=== PATIENT | male | born 1945 | race Caucasian/White ===

== ENCOUNTER 2016-05-25 08:08 | Emergency (ER) | payer MEDICARE, OTHER ==
[2016-05-25 09:07] LABS: ABSOLUTE NEUTROPHIL COUNT 6.2 K/mm3 (1.8-7.7); BASO # 0.1 K/mm3 (0.0-0.2); BASO % 0.8 % (0.2-1.0); EOS # 0.4 (0.0-0.5); EOS % 4.3 % (0.9-2.9); HEMATOCRIT 35.8 % (32.0-52.0); HEMOGLOBIN 11.5 gm/l (14.0-18.0); IMM NEUT% 0.4 % (0-1); LYMPH % 12.2 % (15-45); MEAN CELL VOLUME 87.7 fl (80.0-94.0); MEAN CORPUSCULAR HEMOGLOBIN 28.2 pg (27.0-31.0); MEAN CORPUSCULAR HGB CONC 32.1 g/dl (33.0-37.0); MEAN PLATELET VOLUME 8.1 fl (7.4-10.4); MONO # 0.9 (0.0-0.8); MONO % 10.1 % (4-12); NEUT % 72.2 % (43-75); PLATELET COUNT 282 K/mm3 (130-400); RED CELL DISTRIBUTION WIDTH 12.7 % (11.5-14.5)
[2016-05-25 09:25] LABS: SYNOVIAL FLUID APPEARANCE CLOUDY; SYNOVIAL FLUID NEUTROPHILS 89 % (0-20); SYNOVIAL FLUID RBC 0.2 K/mm3; SYNOVIAL FLUID SOURCE RIGHT KNEE; SYNOVIAL FLUID WBC 30.4 /mm3 (<200)
[2016-05-25 09:26] LABS: SYNOVIAL FLUID COLOR YELLOW
[2016-05-25 09:28] LABS: TOTAL PROTEIN,BODY FLUID 4.9 g/dl
[2016-05-25 09:33] LABS: ALB/GLOB RATIO 0.7 (>1.0)
[2016-05-25] MEDS ORDERED: IBUPROFEN 600 MG TABLET ONE (09:52)
[2016-05-25] MEDS ORDERED: PREDNISONE 20 MG TABLET ONE (09:52)
--- NOTE | 2016-05-25 11:30 | RAD ---
FEMUR RIGHT COMPARISON: None. HISTORY: Right knee pain and swelling Views: Right femur AP and lateral FINDINGS: Bones: Normal. Joints: Large effusion in the right knee. Soft tissues: Normal. IMPRESSION: Large effusion in the right knee.
[2016-05-25 22:42] LABS: CRYSTAL SOURCE Synovial (())
--- NOTE | 2016-05-29 15:52 | SURGPATH ---
[facility] [address] [place] [id number] Patient Name: FELICIANO BLAKE MR#: [id number] : 1945 Gender: M Specimen #: [id number] Collected: 05/25/2016 Received: 05/26/2016 Reported: 05/29/2016 Submitting Phys: JOSE JUAN ARREDONDO Copy To Phys: [facility] Clinical History / Pre-Operative Diagnosis: Specimen Source / Surgical Procedure Performed: Synovial Fluid Interpretation: SYNOVIAL FLUID, RIGHT KNEE, FINE NEEDLE ASPIRATION: - ACUTE SUPPURATIVE INFLAMMATION Electronically Signed Out Shoshana Rivers M.D. Gross Description: 30ml of cloudy yellow fluid in cytolyt. Prepared: 1 double fixed cytospin. Microscopic Description: A double cytospin slide shows acute suppurative inflammation with numerous neutrophils, with fewer lymphocytes. Crystals or polarizable material are not identified. 1: [id number], [id number] M65.861
== END 2016-05-25 11:18 | disposition home or self-care (01) ==
LOC: ED 08:08
DX: M25.461 Effusion, right knee (principal); F17.210 Nicotine dependence, cigarettes, uncomplicated
CPT/HCPCS: 89051; 82150; 85025; 89060; 87070; 80053; 87205; 83615 ×2; 85651; 84157; 73552; 99284; 20610 ×2; 99283; A9270; J7512